=== PATIENT | female | born 1990 | race Caucasian/White ===

== ENCOUNTER → 2021-01-25 09:06 | Outpatient (CLI) | payer OTHER, SELFPAY ==
--- NOTE | ~2021-01-25 | US_ITS ---
EXAMINATION: US pelvic complete w TV EXAM DATE: 01/25/2021 09:37 INDICATION: Amenorrhea. TECHNIQUE: Pelvic transabdominal and transvaginal sonogram was performed. There are multiple graysca le and Doppler images available for interpretation. There is no prior study for comparison. FINDINGS: Uterus measures 8.8 x 4.8 x 5.7 cm, may have small fibroid measuring 1.2 cm. Endometrial stripe measures 3 mm, within normal limits. There is no free pelvic fluid. Right adnexa: The ovary measures 3.3 x 1.7 x 2.8 cm and is morphologically normal. Ovarian vascular f low confirmed. Left adnexa: The ovary measures 3.9 x 1.7 x 2.5 cm and is morphologically normal. Ovarian vascular fl ow confirmed. IMPRESSION: 1. Probable small fibroid. Reviewed, dictated and finalized at location G. IMPRESSION: 1. Probable small fibroid.
== END ==
PROVIDERS: PCP Family Medicine; Visit Provider Family Medicine
DX: N91.2 Amenorrhea, unspecified (principal)
CPT/HCPCS: 76830; 76856

== ENCOUNTER 2021-09-07 01:06 | Emergency (ER) | payer BC, SELFPAY ==
[2021-09-07] VITALS (8 sets, daily range): BP systolic 107–127; BP diastolic 72–79; PULSE 52; RESP 16–18; TEMP 36.8–37.1; O2SAT 97–100
--- NOTE | ~2021-09-07 | CT_ITS ---
EXAMINATION: CT abdomen pelvis w con DATE: 09/07/2021 02:57 INDICATION: Lower abdominal pain TECHNIQUE: Computed tomography (CT) of the abdomen and pelvis was performed with 75 mL Omnipaque-300 intravenous contrast. Automated exposure control and iterative reconstruction technique were employed . The dose-length product was 215.83 mGy-cm. COMPARISON: None FINDINGS: Lung bases are clear. Heart size is normal. No pericardial or pleural effusion. Liver, gallbladder, s pleen, pancreas and bilateral adrenal glands are normal. Multiple bilateral renal cysts, the largest on the left measuring 1.3 cm. Bowels including the appendix are normal. Heterogeneous enhancement of the anteverted uterus suggesting the presence of uterine fibroids. Bladder is normal. Minimal likely physiologic free fluid at the left adnexa. Bilateral ovaries are unremarkable. No pathologically enla rged abdominal or pelvic lymphadenopathy. Bones are unremarkable. IMPRESSION: 1. No acute intra-abdominal/pelvic process. Specifically the appendix is normal. 2. Fibroid uterus. Reviewed, dictated and finalized at location A. IMPRESSION: 1. No acute intra-abdominal/pelvic process. Specifically the appendix is normal . 2. Fibroid uterus.
[2021-09-07 01:42] LABS: Basophils Absolute Auto 0.1 K/mm3 (0.0-0.1); Basophils Percent Auto 0.5 % (0.2-1.2); Eosinophils Absolute Auto 0.1 K/mm3 (0-0.3); Hematocrit 42.3 % (37.0-47.0); Hemoglobin 13.7 g/dL (12.0-15.0); Immature Granulocyte Absolute 0.04 K/mm3 (0.00-0.031); Immature Granulocyte Percent A 0.3 % (0-0.5); Lymphocytes Absolute Auto 1.48 K/mm3 (0.9-3.2); Lymphocytes Percent Auto 12.9 % (18.3-44.2); Mean Corpuscular HGB Conc 32.4 g/dl (32-36); Mean Corpuscular Hemoglobin 28.4 pg (26-34); Mean Corpuscular Volume 87.8 fl (80-100); Monocytes Absolute Auto 0.4 K/mm3 (0.1-0.6); Monocytes Percent Auto 3.6 % (2.6-8.5); Neutrophils Absolute Auto 9.3 K/mm3 (1.3-6.7); Neutrophils Percent Auto 81.7 % (45.5-73.1); Platelet Count Result 315 k/mm3 (150-375); Red Blood Count 4.82 M/mm3 (4.2-5.4); Red Cell Distribution Width 13.5 % (11.5-14.5); White Blood Count 11.4 K/mm3 (4.5-10.0)
[2021-09-07 01:50] LABS: Alanine Aminotransferase 16 U/L (6-35); Albumin Level 4.6 g/dL (3.5-5.1); Alkaline Phosphatase 47 U/L (38-126); Anion Gap 11 mmol/L (8-16); Aspartate Amino Transferase 27 U/L (14-36); Bilirubin,Total 0.5 mg/dL (0.2-1.3); Blood Urea Nitrogen 18 mg/dL (7-17); Calcium 9.7 mg/dL (8.4-10.2); Carbon Dioxide 23 mmol/L (22-30); Chloride 104 mmol/L (98-107); Estimated CRCL calculation 70 ml/min; Estimated Glomerular Filt Rate > 60; Glucose 204 mg/dL (65-110); Lipase 64 U/L (23-300); Potassium 4.3 mmol/L (3.4-5.0); Sodium 138 mmol/L (137-145)
--- NOTE | 2021-09-07 01:59 | ED.GENADULT ---
HPI - General Adult General Chief complaint: Abdominal Pain Stated complaint: abd pain Time Seen by Provider: 09/07/21 01:34 History of Present Illness HPI narrative: Patient presents emergency department from home for abdominal pain. Patient states symptoms began approximately 6:30 PM tonight. Pain is located across the upper abdomen described as cramping in nature associated with nausea vomiting and diarrhea. Patient denies any fevers or chills, chest pain shortness of breath or any other symptoms. States she took ibuprofen at home for the pain with minimal relief Related Data Allergies Allergy/AdvReac Type Severity Reaction Status Date / Time No Known Allergies Allergy Unverified 09/07/21 01:09 Review of Systems Review of Systems: Gen.: Denies fevers or chills ENT: Denies congestion Respiratory: Denies shortness of breath or cough CV: Denies chest pain or palpitations GI: See HPI denies burning, urgency, frequency or hematuria Musculoskeletal: Denies back pain or muscle pain Neuro: Denies numbness, tingling, weakness or focal weakness Skin: Denies rash Except as documented, all other systems reviewed and negative [facility] Past Medical History Medical History (Updated 09/07/21 @ 03:53 by Perry Evans DO) Patient denies significant medical history Social History Social History (Updated 09/07/21 @ 02:00 by Perry Evans DO) Smoking status: Never smoker Exam Narrative: APPEARANCE: No acute distress, nontoxic, resting in bed HEENT: Normocephalic, atraumatic, OMM RESPIRATORY: No respiratory distress, clear to auscultation bilaterally with no rhonchi wheezing or rales CARDIOVASCULAR: RRR s murmur ABDOMINAL: Soft nondistended tender palpation epigastric and right upper quadrant left upper quadrant no tenderness right lower quadrant left lower quadrant no rebound or guarding MUSCULOSKELETAl: Moves all extremities. No clubbing, cyanosis or edema. NEURO: Awake and alert. Following commands, speech normal, no focal deficits SKIN:: Warm, dry. Normal Color PSYCHIATRIC: Normal affect/mood Course Course Emergency Course: Patient states that they are feeling much better at this time. States abdominal pain has resolved. Repeat abdominal exam shows the patient's abdomen to be soft and nontender. Discussed with patient results of workup and diagnosis. Discussed need for follow-up with primary care physician, reasons to return to the emergency department in proper use of medication. Patient understands and agrees to current treatment plan Vital Signs Vital signs: Vital Signs Temperature 98.2 F 09/07/21 01:07 Pulse Rate 52 L 09/07/21 01:07 Respiratory Rate 16 09/07/21 01:07 Blood Pressure 127/75 09/07/21 01:07 Pulse Oximetry 100 09/07/21 01:07 Temperature 98.2 F 09/07/21 01:07 Pulse Rate 52 L 09/07/21 01:07 Respiratory Rate 16 09/07/21 01:07 Blood Pressure 112/79 09/07/21 03:01 Pulse Oximetry 98 09/07/21 03:01 Medical Decision Making MDM Narrative Medical decision making narrative: Patient's abdomen is soft without significant pain or signs of surgical abdomen on serial exams. Lab and x-ray evaluations are reviewed and patient is felt to be a reasonable candidate for outpatient management. Patient was instructed as to limitations of x-ray and laboratory evaluation and encouraged to return to ED or primary physician for repeat exam in 12 hours if continued or worsening pain Vital Signs Vital Signs: Vital Signs Temperature 98.2 F 09/07/21 01:07 Pulse Rate 52 L 09/07/21 01:07 Respiratory Rate 16 09/07/21 01:07 Blood Pressure 127/75 09/07/21 01:07 Pulse Oximetry 100 09/07/21 01:07 Temperature 98.2 F 09/07/21 01:07 Pulse Rate 52 L 09/07/21 01:07 Respiratory Rate 16 09/07/21 01:07 Blood Pressure 112/79 09/07/21 03:01 Pulse Oximetry 98 09/07/21 03:01 Lab Data Result diagrams: 09/07/21 01:35 09/07/21 01:35 Labs: La
[2021-09-07] MEDS: SODIUM CHLORIDE 0.9% IV 1,000 ML 999 ML IV CONT (02:12)
[2021-09-07] MEDS: MORPHINE SULFATE (*CRX) 4 MG/ML INJ IV PUSH (02:13)
[2021-09-07] MEDS: ONDANSETRON INJ 4 MG/2 ML VIAL IV PUSH (02:13)
[2021-09-07 02:25] LABS: Appearance Urine Clear (Clear); Bilirubin Urine Negative (Negative); Blood Urine 1+ (Negative); Color Urine Yellow (Yellow); Glucose Urine UA 1+ mg/dL (Negative); Ketones Urine Trace mg/dL (Negative); Leukocyte Esterase Ur Negative LEU/UL (Negative); Nitrate Urine Negative (Negative); Protein Urine Negative (Negative); Specific Grav Ur 1.025 (1.001-1.035); Urobilinogen Urine 0.2 mg/dL (<2.0)
[2021-09-07 02:35] LABS: Mucus Urine Rare /lpf; Squamous Epithelial Cell Urine Few /hpf (Few); WBC Urine 0-3 /hpf
[2021-09-07 02:51] LABS: Add Urine Microscopic? YES
== END 2021-09-07 04:28 | disposition home or self-care (01) ==
PROVIDERS: Emergency Provider Emergency Medicine; PCP Family Medicine
DX: R10.10 Upper abdominal pain, unspecified (principal); R11.2 Nausea with vomiting, unspecified
CPT/HCPCS: 36415; 74177; 80053; 81001; 81025; 83690; 85025; 96361; 96374; 96375; 99284; J2270; J2405; J7030; Q9967

== ENCOUNTER 2024-07-07 07:45 | Day surgery (SDC) | payer BC, SELFPAY ==
[2024-07-07] VITALS (14 sets, daily range): BP systolic 100–140; BP diastolic 71–92; PULSE 72–121; RESP 15–20; TEMP 36.6–36.9; O2SAT 99–100; BMI 23.8
--- NOTE | ~2024-07-07 | US_ITS ---
EXAMINATION: US OB <=14 wk fetus w TV DATE: 07/07/2024 10:35 INDICATION: Right lower quadrant abdominal pain. TECHNIQUE: Real-time pelvic ultrasound utilizing both a transvaginal and transabdominal probe was pe rformed. The interpreting radiologist was not present for the study. COMPARISON: None. FINDINGS: The uterus measures 9.2 x 5.5 x 6.4 cm. The endometrial complex measures up to 1.1 cm in thickness wi th no evident intrauterine gestational sac. Heterogeneous echogenicity to the myometrium with linear bands of posterior shadowing which could be seen in setting of diffuse adenomyosis. [address] at the cervix. The left ovary measures 2.7 x 1.4 x 1.4 with 8mm anechoic left ovarian cyst. The right ovary measure s 2.6 x 1.8 x 2.6 cm. Mass or flow identified in both ovaries on color Doppler. There is a thick-wall ed tubular structure extending between the uterus and the right ovary likely representing a fallopian tube. Near the ovarian side is approximately 1.5 cm hypoechoic lesion with central 6 mm near anechoi c region with peripheral hypervascularity on color Doppler potentially representing a ring of fire si gn associated with a potential tubal ectopic . There is small amount of hypoechoic free flui d in the pelvis predominantly along the uterine fundus and at the right adnexa potentially representi ng small amount of hemoperitoneum. IMPRESSION: 1. No evident intrauterine gestational sac for which differential would include early , fail ed or ectopic . There is a lesion which appears separate from the right ovary with peripheral hyperemia along what appears to be a thickened right fallopian tube which is concerning f or a tubal ectopic . 2. Small amount of hypoechoic free fluid in the pelvis suspicious for hemoperitoneum. 3. Heterogeneous appearance to the uterine myometrium suspicious for diffuse adenomyosis. Reviewed, dictated and finalized at location A. IMPRESSION: 1. No evident intrauterine gestational sac for which differential would include early , failed or ectopic . There is a lesion whic h appears separate from the right ovary with peripheral hyperemia along what ap pears to be a thickened right fallopian tube which is concerning for a tubal ec topic . 2. Small amount of hypoechoic free fluid in the pelvis suspicious for hemoperit oneum. 3. Heterogeneous appearance to the uterine myometrium suspicious for diffuse ad enomyosis.
[2024-07-07 08:35] LABS: Basophils Absolute Auto 0.1 K/mm3 (0.0-0.1); Basophils Percent Auto 0.9 % (0.2-1.2); Eosinophils Absolute Auto 0.2 K/mm3 (0-0.3); Hematocrit 37.7 % (37.0-47.0); Hemoglobin 12.3 g/dL (12.0-15.0); Immature Granulocyte Absolute 0.02 K/mm3 (0.00-0.031); Immature Granulocyte Percent A 0.3 % (0-0.5); Lymphocytes Absolute Auto 1.19 K/mm3 (0.9-3.2); Lymphocytes Percent Auto 18.6 % (18.3-44.2); Mean Corpuscular HGB Conc 32.6 g/dl (32-36); Mean Corpuscular Hemoglobin 28.3 pg (26-34); Mean Corpuscular Volume 86.9 fl (80-100); Mean Platelet Volume 9.7 fl (7.4-10.4); Monocytes Absolute Auto 0.4 K/mm3 (0.1-0.6); Monocytes Percent Auto 6.4 % (2.6-8.5); Neutrophils Absolute Auto 4.5 K/mm3 (1.3-6.7); Neutrophils Percent Auto 70.8 % (45.5-73.1); Platelet Count Result 310 k/mm3 (150-375); Red Blood Count 4.34 M/mm3 (4.2-5.4); Red Cell Distribution Width 13.1 % (11.5-14.5); White Blood Count 6.4 K/mm3 (4.5-10.0)
[2024-07-07 08:48] LABS: Alanine Aminotransferase 17 U/L (6-35); Albumin Level 4.4 g/dL (3.5-5.1); Alkaline Phosphatase 57 U/L (38-126); Anion Gap 11 mmol/L (4-12); Aspartate Amino Transferase 24 U/L (14-36); Bilirubin,Total 0.5 mg/dL (0.2-1.3); Blood Urea Nitrogen 14 mg/dL (7-17); Carbon Dioxide 22 mmol/L (22-30); Chloride 103 mmol/L (98-107); Estimated CRCL calculation 80 ml/min; Estimated Glomerular Filt Rate > 60; Glucose 155 mg/dL (65-110); Partial Thromboplastin Time 23.1 Seconds (22.3-36.8); Sodium 136 mmol/L (137-145)
--- NOTE | 2024-07-07 09:03 | ED.FEMALEGU ---
HPI - Female Genitourinary General Chief complaint: Vaginal Bleeding <BETTY Lyn Last Filed: 07/07/24 15:41> Stated complaint: day 22 of my period, <BETTY Lyn Last Filed: 07/07/24 15:41> Time Seen by Provider: 07/07/24 09:01 <BETTY Lyn Last Filed: 07/07/24 15:41> Source: patient <BETTY Lyn Last Filed: 07/07/24 15:41> Mode of arrival: ambulatory <BETTY Lyn Last Filed: 07/07/24 15:41> Limitations: no limitations <BETTY Lyn Last Filed: 07/07/24 15:41> History of Present Illness HPI Narrative: Patient is a 33 y/o female, with PMH of PCOS, who presents to the ED with c/o vaginal bleeding. Reports she typically has regular 28 day cycles with 5-7 days of bleeding. She has been consistently bleeding over the last 22 days. States bleeding has been fairly mild. Not requiring super plus tampons. She has had intermittent dull aching pain in her right lower abdomen over the last few weeks, but pain became worse and more constant since last night. Has not taken anything for pain. Denies significant nausea, vomiting. Does have some pressure with urination. Scheduled to see a new OBGYN on 07/27. Not currently on any control. States she has not had any issues with her PCOS in the past. Denies dysuria, but has some pressure with urination. <BETTY Lyn Last Filed: 07/07/24 15:41> Related Data Allergies/Adverse reactions: Allergies Allergy/AdvReac Type Severity Reaction Status Date / Time No Known Allergies Allergy Verified 07/07/24 12:55 <BETTY Lyn Last Filed: 07/07/24 15:41> Review of Systems Review of Systems: All systems reviewed & are unremarkable except as noted in HPI. <BETTY Lyn Last Filed: 07/07/24 15:41> All systems reviewed & are unremarkable except as noted in HPI and below <Liliana Prater PA-C - Last Filed: 07/07/24 15:41> PMFSH Past Medical History Medical History: Medical History PCOS (polycystic ovarian syndrome) Patient denies significant medical history <Liliana Prater PA-C - Last Filed: 07/07/24 15:41> Surgical History Surgical History: Surgical History H/O wisdom tooth extraction H/O myringotomy <Liliana Prater PA-C - Last Filed: 07/07/24 15:41> Social History Social History: Social History Smoking status: Never smoker <Liliana Prater PA-C - Last Filed: 07/07/24 15:41> Exam Narrative: GENERAL: Well appearing, well-nourished, non-toxic, in no acute distress. HEAD: Normocephalic, atraumatic. RESPIRATORY: Airway patent, respirations nonlabored. Clear to auscultation bilaterally, no rales, rhonchi, wheezing. CARDIOVASCULAR: Regular rate and rhythm without murmurs, rubs, or gallops. ABDOMINAL: Soft, mild tenderness in right lower quadrant, nondistended. Normoactive BS. MUSCULOSKELETAL: Moves all extremities. No gross deformities. SKIN: Warm, dry, normal color. NEURO: A&O X3. Speech clear. PSYCHIATRIC: Appropriate mood and affect. Normal interaction. 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 Found to have ectopic with hemoperitoneum. I was available for consultation while patient was department but did personally evaluate this patient was not directly involved in their care otherwise. I am aware that Ob [facility] will be evaluating this patient and likely going to the operating room. <Jaky Grey MD - Last Filed: 07/07/24 21:55> Vital Signs Vital signs: Vital Signs Temperature 97.8 F 07/07/24 07:49 Pulse Rate 80 07/07/24 07:49 Respiratory Rate 16 07/07/24 07:49 Blood Pressure 136/86 07/07/24 07:49 Pulse Oximetry 100 07/07/24 07:49 Oxygen Delivery Room Air 07/07/24 07:49 Temperature 98.1 F 07/07/24 13:31 Pulse Rate 80 07/07/24 15:00 Respiratory Rate 20 07/07/24 15:00 Blood Pressure 128/78 07/07/24 15:00 Pulse Oximetry 100 07/07/24 14:00 Oxygen Delivery Room Air 07/07/24 15:00 Oxygen Flow Rate 8 07/07/24 13:40 <Liliana Prater PA-C - Last Filed: 07/07/24 15:41> Vital Signs Temperature 97.8 F 07/07/24 07:49 Pulse Rate 80 07/07/24 07:49 Respiratory Rate 16 07/07/24 07:49 Blood Pressure 136/86 07/07/24 07:49 Pulse Oximetry 100 07/07/24 07:49 Oxygen Delivery Room Air 07/07/24 07:49 Temperature 98.1 F 07/07/24 13:31 Pulse Rate 80 07/07/24 15:00 Respiratory Rate 20 07/07/24 15:00 Blood Pressure 128/78 07/07/24 15:00 Pulse Oximetry 100 07/07/24 14:00 Oxygen Delivery Room Air 07/07/24 15:00 Oxygen Flow Rate 8 07/07/24 13:40 <Jaky Grey MD - Last Filed: 07/07/24 21:55> MDM - Female Genitourinary MDM Narrative Medical decision making narrative: Patient presented to ED with 22 days of vaginal bleeding. Now having pain in the right lower quadrant since last night. History of PCOS. Vital signs are stable upon arrival. Patient is in no acute distress. Laboratory studies are unremarkable. UA without signs of infection. Bedside urine test was positive. This is unexpected to patient. Beta hCG and Rh added on. Blood type is A negative. RhoGAM ordered. Beta hCG is 698. Pelvic ultrasound showing findings concerning for right-sided tubal ectopic , small amount of hemoperitoneum. Discussed case with john Hodges sponge hooker, advised will be coming to the ED to speak to patient, likely take to the OR. Patient updated on plan. She is in agreement. She last ate last night. Had a few sips of water this morning. Patient to OR from the ED. <Liliana Prater PA-C - Last Filed: 07/07/24 15:41> Medical Records Attestation: I reviewed the patient's medical records. <Liliana Prater PA-C - Last Filed: 07/07/24 15:41> Lab Data Attestation: I reviewed the patient's lab results. <Liliana Prater PA-C - Last Filed: 07/07/24 15:41> Result diagrams: 07/07/24 08:25 07/07/24 08:25 <Liliana Prater PA-C - Last Filed: 07/07/24 15:41> Labs: Lab Results 07/07/24 07/07/24 07/07/24 Range/Units 08:25 09:33 09:38 WBC 6.4 (4.5-10.0) K/mm3 RBC 4.34 (4.2-5.4) M/mm3 Hgb 12.3 (12.0-15.0) g/dL Hct 37.7 (37.0-47.0) % MCV 86.9 (80-100) fl MCH 28.3 (26-34) pg MCHC 32.6 (32-36) g/dl RDW 13.1 (11.5-14.5) % Plt Count 310 (150-375) k/mm3 MPV 9.7 (7.4-10.4) fl Immature Gran % (Auto) 0.3 (0-0.5) % Neut % (Auto) 70.8 (45.5-73.1) % Lymph % (Auto) 18.6 (18.3-44.2) % [place] % (Auto) 6.4 (2.6-8.5) % Eos % (Auto) 3.0 (0-4.4) % Baso % (Auto) 0.9 (0.2-1.2) % Lymph # (Auto) 1.19 (0.9-3.2) K/mm3 [place] # (Auto) 0.4 (0.1-0.6) K/mm3 Eos # (Auto) 0.2 (0-0.3) K/mm3 Baso # (Auto) 0.1 (0.0-0.1) K/mm3 Abs Immat Gran (auto) 0.02 (0.00-0.031) K/mm3 Absolute Neuts (auto) 4.5 (1.3-6.7) K/mm3 Absolute Nucleated RBC 0.000 (0.0-0.012) K/mm3 Nucleated RBC % 0.0 (0.0-0.2) % PT 14.0 (11.1-14.7) Seconds INR 1.0 APTT 23.1 (22.3-36.8) Seconds Sodium 136 L (137-145) mmol/L Potassium 4.0 (3.4-5.0) mmol/L Chloride 103 (98-107) mmol/L Carbon Dioxide 22 (22-30) mmol/L Anion Gap 11 (4-12) mmol/L BUN 14 (7-17) mg/dL Creatinine 0.73 (0.7-1.0) mg/dL Estim Creat Clear Calc 80 ml/min Estimated GFR > 60 (59 - ) Glucose 155 H (65-110) mg/dL Calcium 9.0 (8.4-10.2) mg/dL Total Bilirubin 0.5 (0.2-1.3) mg/dL AST 24 (14-36) U/L ALT 17 (6-35) U/L Alkaline Phosphatase 57 (38-126) U/L Total Protein 7.0 (6.3-8.2) g/dL Albumin 4.4 (3.5-5.1) g/dL Beta HCG, Quant mIU/ML Urine Color Yellow (Yellow) Urine Appearance Clear (Clear) Urine pH 6.5 (5.0-9.0) Ur Specific [place] 1.022 (1.001-1.035) Urine Protein Negative (Negative) mg/dL Urine Glucose (UA) Negative (Negative) mg/dL Urine Ketones 2+ H (Negative) mg/dL Ur Blood (Man) 1+ H (Negative) Urine Nitrate Negative (Negative) Urine Bilirubin Negative (Negative) Urine Urobilinogen 0.2 (<2.0) mg/dL Leukocyte Esterase Rfl Negative (Negative) HELENA/UL Urine RBC 0-2 (0-2) /hpf Urine WBC 0-5 (0-3) /hpf Ur Squamous Epith Cells Occasional (Few) /hpf Urine Bacteria None seen /hpf Urine Casts 0-2 POC Urine HCG, Qual Positive (Negative) Blood Type Antibody Screen Screen Baby's Blood Type Baby's ESTHELA Doses of RhIg Required 07/07/24 Range/Units 10:42 WBC (4.5-10.0) K/mm3 RBC (4.2-5.4) M/mm3 Hgb (12.0-15.0) g/dL Hct (37.0-47.0) % MCV (80-100) fl MCH (26-34) pg MCHC (32-36) g/dl RDW (11.5-14.5) % Plt Count (150-375) k/mm3 MPV (7.4-10.4) fl Immature Gran % (Auto) (0-0.5) % Neut % (Auto) (45.5-73.1) % Lymph % (Auto) (18.3-44.2) % [place] % (Auto) (2.6-8.5) % Eos % (Auto) (0-4.4) % Baso % (Auto) (0.2-1.2) % Lymph # (Auto) (0.9-3.2) K/mm3 [place] # (Auto) (0.1-0.6) K/mm3 Eos # (Auto) (0-0.3) K/mm3 Baso # (Auto) (0.0-0.1) K/mm3 Abs Immat Gran (auto) (0.00-0.031) K/mm3 Absolute Neuts (auto) (1.3-6.7) K/mm3 Absolute Nucleated RBC (0.0-0.012) K/mm3 Nucleated RBC % (0.0-0.2) % PT (11.1-14.7) Seconds INR APTT (22.3-36.8) Seconds Sodium (137-145) mmol/L Potassium (3.4-5.0) mmol/L Chloride (98-107) mmol/L Carbon Dioxide (22-30) mmol/L Anion Gap (4-12) mmol/L BUN (7-17) mg/dL Creatinine (0.7-1.0) mg/dL Estim Creat Clear Calc ml/min Estimated GFR (59 - ) Glucose (65-110) mg/dL Calcium (8.4-10.2) mg/dL Total Bilirubin (0.2-1.3) mg/dL AST (14-36) U/L ALT (6-35) U/L Alkaline Phosphatase (38-126) U/L Total Protein (6.3-8.2) g/dL Albumin (3.5-5.1) g/dL Beta HCG, Quant 698.53 mIU/ML Urine Color (Yellow) Urine Appearance (Clear) Urine pH (5.0-9.0) Ur Specific [place] (1.001-1.035) Urine Protein (Negative) mg/dL Urine Glucose (UA) (Negative) mg/dL Urine Ketones (Negative) mg/dL Ur Blood (Man) (Negative) Urine Nitrate (Negative) Urine Bilirubin (Negative) Urine Urobilinogen (<2.0) mg/dL Leukocyte Esterase Rfl (Negative) HELENA/UL Urine RBC (0-2) /hpf Urine WBC (0-3) /hpf Ur Squamous Epith Cells (Few) /hpf Urine Bacteria /hpf Urine Casts POC Urine HCG, Qual (Negative) Blood Type A Negative Antibody Screen Negative Screen Not Reportable Baby's Blood Type Not Reportable Baby's ESTHELA Not Reportable Doses of RhIg Required 1 <Liliana Prater PA-C - Last Filed: 07/07/24 15:41> Lab Results 07/07/24 07/07/24 07/07/24 Range/Units 08:25 09:33 09:38 WBC 6.4 (4.5-10.0) K/mm3 RBC 4.34 (4.2-5.4) M/mm3 Hgb 12.3 (12.0-15.0) g/dL Hct 37.7 (37.0-47.0) % MCV 86.9 (80-100) fl MCH 28.3 (26-34) pg MCHC 32.6 (32-36) g/dl RDW 13.1 (11.5-14.5) % Plt Count 310 (150-375) k/mm3 MPV 9.7 (7.4-10.4) fl Immature Gran % (Auto) 0.3 (0-0.5) % Neut % (Auto) 70.8 (45.5-73.1) % Lymph % (Auto) 18.6 (18.3-44.2) % [place] % (Auto) 6.4 (2.6-8.5) % Eos % (Auto) 3.0 (0-4.4) % Baso % (Auto) 0.9 (0.2-1.2) % Lymph # (Auto) 1.19 (0.9-3.2) K/mm3 [place] # (Auto) 0.4 (0.1-0.6) K/mm3 Eos # (Auto) 0.2 (0-0.3) K/mm3 Baso # (Auto) 0.1 (0.0-0.1) K/mm3 Abs Immat Gran (auto) 0.02 (0.00-0.031) K/mm3 Absolute Neuts (auto) 4.5 (1.3-6.7) K/mm3 Absolute Nucleated RBC 0.000 (0.0-0.012) K/mm3 Nucleated RBC % 0.0 (0.0-0.2) % PT 14.0 (11.1-14.7) Seconds INR 1.0 APTT 23.1 (22.3-36.8) Seconds Sodium 136 L (137-145) mmol/L Potassium 4.0 (3.4-5.0) mmol/L Chloride 103 (98-107) mmol/L Carbon Dioxide 22 (22-30) mmol/L Anion Gap 11 (4-12) mmol/L BUN 14 (7-17) mg/dL Creatinine 0.73 (0.7-1.0) mg/dL Estim Creat Clear Calc 80 ml/min Estimated GFR > 60 (59 - ) Glucose 155 H (65-110) mg/dL Calcium 9.0 (8.4-10.2) mg/dL Total Bilirubin 0.5 (0.2-1.3) mg/dL AST 24 (14-36) U/L ALT 17 (6-35) U/L Alkaline Phosphatase 57 (38-126) U/L Total Protein 7.0 (6.3-8.2) g/dL Albumin 4.4 (3.5-5.1) g/dL Beta HCG, Quant mIU/ML Urine Color Yellow (Yellow) Urine Appearance Clear (Clear) Urine pH 6.5 (5.0-9.0) Ur Specific [place] 1.022 (1.001-1.035) Urine Protein Negative (Negative) mg/dL Urine Glucose (UA) Negative (Negative) mg/dL Urine Ketones 2+ H (Negative) mg/dL Ur Blood (Man) 1+ H (Negative) Urine Nitrate Negative (Negative) Urine Bilirubin Negative (Negative) Urine Urobilinogen 0.2 (<2.0) mg/dL Leukocyte Esterase Rfl Negative (Negative) HELENA/UL Urine RBC 0-2 (0-2) /hpf Urine WBC 0-5 (0-3) /hpf Ur Squamous Epith Cells Occasional (Few) /hpf Urine Bacteria None seen /hpf Urine Casts 0-2 POC Urine HCG, Qual Positive (Negative) Blood Type Antibody Screen Screen Baby's Blood Type Baby's ESTHELA Doses of RhIg Required 07/07/24 Range/Units 10:42 WBC (4.5-10.0) K/mm3 RBC (4.2-5.4) M/mm3 Hgb (12.0-15.0) g/dL Hct (37.0-47.0) % MCV (80-100) fl MCH (26-34) pg MCHC (32-36) g/dl RDW (11.5-14.5) % Plt Count (150-375) k/mm3 MPV (7.4-10.4) fl Immature Gran % (Auto) (0-0.5) % Neut % (Auto) (45.5-73.1) % Lymph % (Auto) (18.3-44.2) % [place] % (Auto) (2.6-8.5) % Eos % (Auto) (0-4.4) % Baso % (Auto) (0.2-1.2) % Lymph # (Auto) (0.9-3.2) K/mm3 [place] # (Auto) (0.1-0.6) K/mm3 Eos # (Auto) (0-0.3) K/mm3 Baso # (Auto) (0.0-0.1) K/mm3 Abs Immat Gran (auto) (0.00-0.031) K/mm3 Absolute Neuts (auto) (1.3-6.7) K/mm3 Absolute Nucleated RBC (0.0-0.012) K/mm3 Nucleated RBC % (0.0-0.2) % PT (11.1-14.7) Seconds INR APTT (22.3-36.8) Seconds Sodium (137-145) mmol/L Potassium (3.4-5.0) mmol/L Chloride (98-107) mmol/L Carbon Dioxide (22-30) mmol/L Anion Gap (4-12) mmol/L BUN (7-17) mg/dL Creatinine (0.7-1.0) mg/dL Estim Creat Clear Calc ml/min Estimated GFR (59 - ) Glucose (65-110) mg/dL Calcium (8.4-10.2) mg/dL Total Bilirubin (0.2-1.3) mg/dL AST (14-36) U/L ALT (6-35) U/L Alkaline Phosphatase (38-126) U/L Total Protein (6.3-8.2) g/dL Albumin (3.5-5.1) g/dL Beta HCG, Quant 698.53 mIU/ML Urine Color (Yellow) Urine Appearance (Clear) Urine pH (5.0-9.0) Ur Specific [place] (1.001-1.035) Urine Protein (Negative) mg/dL Urine Glucose (UA) (Negative) mg/dL Urine Ketones (Negative) mg/dL Ur Blood (Man) (Negative) Urine Nitrate (Negative) Urine Bilirubin (Negative) Urine Urobilinogen (<2.0) mg/dL Leukocyte Esterase Rfl (Negative) HELENA/UL Urine RBC (0-2) /hpf Urine WBC (0-3) /hpf Ur Squamous Epith Cells (Few) /hpf Urine Bacteria /hpf Urine Casts POC Urine HCG, Qual (Negative) Blood Type A Negative Antibody Screen Negative Screen Not Reportable Baby's Blood Type Not Reportable Baby's ESTHELA Not Reportable Doses of RhIg Required 1 <Jaky Grey MD - Last Filed: 07/07/24 21:55> Imaging Data Attestation: I personally reviewed and interpreted this imaging study as follows: <Liliana Prater PA-C - Last Filed: 07/07/24 15:41> Radiologist's impression: ITS Impressions Obstetrics Ultrasound 07/07/24 10:36 IMPRESSION: 1. No evident intrauterine gestational sac for which differential would include early , failed or ectopic . There is a lesion which appears separate from the right ovary with peripheral hyperemia along what appears to be a thickened right fallopian tube which is concerning for a tubal ectopic . 2. Small amount of hypoechoic free fluid in the pelvis suspicious for hemoperitoneum. 3. Heterogeneous appearance to the uterine myometrium suspicious for diffuse adenomyosis. ADDENDUM: 07/07/24 1220 ADDENDUM: These findings were discussed with immediately prior to finalizing the report at 9:55 AM. <Liliana Prater PA-C - Last Filed: 07/07/24 15:41> Discharge Plan Discharge Clinical Impression: Hemoperitoneum Tubal ectopic Qualifiers: Intrauterine status: without intrauterine Laterality: right Qualified Code(s): O00.101 - Right tubal without intrauterine <Liliana Parter PA-C - Last Filed: 07/07/24 15:41> Patient Disposition: Still a Patient <Liliana Prater PA-C - Last Filed: 07/07/24 15:41> Condition: Stable <BETTY Lyn Last Filed: 07/07/24 15:41>
--- NOTE | 2024-07-07 09:37 | PC.NURSE ---
Pt to u/s via w/c at this time.
[2024-07-07 09:39] LABS: BEDSIDEPREGUCG Positive (Negative)
[2024-07-07 09:54] LABS: Add Urine Microscopic? YES; Appearance Urine Clear (Clear); Bacteria Urine None Seen /hpf; Bilirubin Urine Negative (Negative); Blood Urine 1+ (Negative); Color Urine Yellow (Yellow); Glucose Urine UA Negative (Negative); Ketones Urine 2+ mg/dL (Negative); Leukocyte Esterase Ur Negative LEU/UL (Negative); Nitrate Urine Negative (Negative); Non Pathogenic Casts 0-2; Protein Urine Negative (Negative); RBC Urine 0-2 /hpf (0-2); Specific Grav Ur 1.022 (1.001-1.035); Squamous Epithelial Cell Urine Occasional /hpf (Few); Urobilinogen Urine 0.2 mg/dL (<2.0); WBC Urine 0-5 /hpf (0-3); pH Urine 6.5 (5.0-9.0)
[2024-07-07] MEDS: ONDANSETRON INJ 4 MG/2 ML VIAL IV PUSH (10:27)
[2024-07-07] MEDS: MORPHINE SULFATE (*CRX) 2 MG/ML INJ IV PUSH (10:27)
[2024-07-07 11:19] LABS: Beta HCG Quantitative 698.53 mIU/ML
[2024-07-07] MEDS: RHO(D) IMMUNE GLOBULIN 300 MCG/2 ML SYRINGE IM (12:20)
--- NOTE | 2024-07-07 12:20 | PM.IMHP ---
H&P: HPI History of Present Illness Date/Time: 07/07/24 12:20 Chief Complaint: vaginal bleeding tubal ectopic Narrative: 33-year-old who presents with complaint of vaginal bleeding. Patient was incidentally found to be in the emergency room. Patient reports a history of PCOS. She is not on any hormonal contraceptives. Patient had been having regular monthly menses. She states her LMP was 06/18/2019. Patient states she has had continued bleeding since. Patient attributed her bleeding to an abnormal menses. Patient states that last evening she started developing a right lower quadrant pain. Patient states this morning while getting ready for work the pain intensified. Patient had sudden onset of nausea. Patient states this is in on planned an undesired . Patient does not want any children. Patient is stable in the bed during my evaluation. Patient's pain is controlled. Review of Systems Cardiovascular: Cardiovascular: Denies chest pain, Denies leg edema, Denies palpitations, Denies dyspnea and Denies dyspnea on exertion Respiratory: Respiratory: Denies cough, Denies dyspnea and Denies dyspnea on exertion Gastrointestinal: Gastrointestinal: Denies abdominal pain, Denies constipation, Denies diarrhea, Denies nausea and Denies vomiting Genitourinary: Genitourinary: Denies hematuria, Denies urinary frequency, Denies dysuria, Denies pelvic pain, Denies urinary incontinence and Denies vaginal discharge Neurologic: Reports system reviewed and no additional complaints, except as documented Psychiatric: Psychiatric: Reports no additional psychiatric complaints Endocrine: Endocrine: Denies palpitations PMFSH Past Medical History Medical History (Updated 07/07/24 @ 11:49 by Liliana Prater PA-C) PCOS (polycystic ovarian syndrome) Patient denies significant medical history Social History Social History Smoking status: Never smoker Meds Home Medications and Allergies Home Medications ?Medication ?Instructions ?Recorded ?Confirmed ?Type dicyclomine 20 mg tablet 20 mg PO TID PRN Abdominal 09/07/21 Rx cramping #10 tabs famotidine 20 mg tablet (Pepcid) 20 mg PO DAILY #14 tabs 09/07/21 Rx ondansetron 4 mg disintegrating 4 mg PO Q6H PRN nausea and 09/07/21 Rx tablet vomiting #10 tabs polyethylene glycol 3350 17 17 g PO DAILY #119 grams 09/07/21 Rx gram/dose oral powder (Miralax) Allergies Allergy/AdvReac Type Severity Reaction Status Date / Time No Known Allergies Allergy Unverified 09/07/21 01:09 Vital Signs Vital Signs - 24 hr 07/07/24 07:49 07/07/24 08:27 07/07/24 08:41 Temperature 97.8 F Pulse Rate 80 72 78 Respiratory Rate 16 15 Blood Pressure 136/86 127/87 124/88 Pulse Oximetry 100 100 Oxygen Delivery Room Air 07/07/24 08:43 07/07/24 08:44 07/07/24 10:31 Temperature Pulse Rate 105 H 114 H 77 Respiratory Rate 17 Blood Pressure 126/89 115/80 122/83 Pulse Oximetry 99 Oxygen Delivery Exam Const: General: no acute distress Eyes: EOM: EOMs intact bilaterally Neck: Neck: supple Thyroid: thyroid normal Chest: Breast/axilla inspection: normal inspection of the breasts Breast/axilla palpation: normal palpation of the breasts, normal palpation of the axillae and no axillary lymphadenopathy Resp: Effort & Inspection: normal respiratory effort Auscultation: clear to auscultation bilaterally Cardio: Rate: regular rate Rhythm: regular rhythm GI: Inspection: non-distended GI Palp: Yes Soft to palpation, Yes Tenderness to palpation present (GI) and No Guarding due to palpation present (GI) Auscultation: normal bowel sounds : General: No bladder normal to palpation External Female Exam: normal external appearance Speculum Exam - Vagina: normal vaginal discharge and No vaginal bleeding Speculum Exam - Cervix: nontender Bimanual exam- vagina & uterus: No bladder normal to palpation and No Cervical tenderness present OB/external & speculum: No vaginal bleeding Skin: General skin exam: normal color and no rashes or lesions noted Neuro: Cognition (Neuro): normal cognition Speech: normal speech Extrem: General: normal to inspection and no edema Psych: Mental Status: mental status grossly normal Affect: normal affect H&P: Results Labs Labs: Short CBC 07/07/24 Range/Units 08:25 WBC 6.4 (4.5-10.0) K/mm3 Hgb 12.3 (12.0-15.0) g/dL Hct 37.7 (37.0-47.0) % Plt Count 310 (150-375) k/mm3 BMP 07/07/24 08:25 Sodium 136 L Potassium 4.0 Chloride 103 Carbon Dioxide 22 BUN 14 Creatinine 0.73 Glucose 155 H Calcium 9.0 Liver Function 07/07/24 Range/Units 08:25 Total Bilirubin 0.5 (0.2-1.3) mg/dL AST 24 (14-36) U/L ALT 17 (6-35) U/L Alkaline Phosphatase 57 (38-126) U/L Albumin 4.4 (3.5-5.1) g/dL Urine 07/07/24 Range/Units 09:38 Urine Color Yellow (Yellow) Urine Appearance Clear (Clear) Urine pH 6.5 (5.0-9.0) Ur Specific [place] 1.022 (1.001-1.035) Urine Protein Negative (Negative) mg/dL Urine Glucose (UA) Negative (Negative) mg/dL Assessment and Plan Assessment and plan (1) Tubal ectopic : Code(s): O00.109 - Unspecified tubal without intrauterine Status: Acute Assessment and Plan: 33-year-old who presents right-sided tubal ectopic Patient reports history of PCOS, not on hormonal contraceptives Patient reports abnormal bleeding with daily vaginal bleeding for the past 20 days Patient reports acute onset right lower quadrant pain last evening, pain intensified this morning with acute onset nausea Patient incidentally found to be in the ER today Beta HCG 698 Pelvic ultrasound concerning for right tubal ectopic with possible hemoperitoneum Patient is hemodynamically stable in the emergency room Discussed ectopic and management options Discussed methotrexate versus surgical management via salpingectomy Given ultrasound findings for possible hemoperitoneum and patient's prolonged bleeding pattern, I do not feel she is an appropriate candidate for methotrexate Surgical management of ectopic discussed with patient Discussed laparoscopic right salpingectomy Risks, benefits, alternatives reviewed Patient consented to proceed with laparoscopic right salpingectomy for management of tubal ectopic
--- NOTE | 2024-07-07 12:29 | WPDHPUPDATE1 ---
History and Physical Update Update Date/Time: 07/07/24 12:29 -Rh negative- will administer rhogam History and Physical has been reviewed, including an updated exam of the patient. There are NO changes in the patient's condition. Risks, benefits, and alternatives have been discussed and questions answered. Patient agrees to proceed with procedure.
--- NOTE | 2024-07-07 12:35 | P.PNAN_ITS ---
Anes - Initial Pre Proc Eval Procedure: Operation Date: 07/07/24 13:00 Proposed Procedures p Diagnostic Laparoscopy for Ectopic , Possible Right Salpingectomy or Right Oophorectomy - Dioni Menendez MD Date/Time: 07/07/24 12:35 Surgeon: Dioni Menendez MD Pre Op Diagnosis: of my period, Patient Data Age: 33 Gender: F Height: 1.63 m Weight: 59.9 kg Last Vital Signs Temp 36.6 C 07/07/24 07:49 Pulse 77 07/07/24 10:31 Resp 17 07/07/24 10:31 BP 122/83 07/07/24 10:31 Pulse Ox 99 07/07/24 10:31 O2 Del Method Room Air 07/07/24 07:49 Allergies Allergy/AdvReac Type Severity Reaction Status Date / Time No Known Allergies Allergy Unverified 09/07/21 01:09 Home Medications ?Medication ?Instructions ?Recorded ?Confirmed ?Type dicyclomine 20 mg tablet 20 mg PO TID PRN Abdominal 09/07/21 Rx cramping #10 tabs famotidine 20 mg tablet (Pepcid) 20 mg PO DAILY #14 tabs 09/07/21 Rx ondansetron 4 mg disintegrating 4 mg PO Q6H PRN nausea and 09/07/21 Rx tablet vomiting #10 tabs polyethylene glycol 3350 17 17 g PO DAILY #119 grams 09/07/21 Rx gram/dose oral powder (Miralax) Laboratory Tests 07/07/24 07/07/24 07/07/24 08:25 09:33 09:38 WBC 6.4 K/mm3 (4.5-10.0) RBC 4.34 M/mm3 (4.2-5.4) Hgb 12.3 g/dL (12.0-15.0) Hct 37.7 % (37.0-47.0) MCV 86.9 fl (80-100) MCH 28.3 pg (26-34) MCHC 32.6 g/dl (32-36) RDW 13.1 % (11.5-14.5) Plt Count 310 k/mm3 (150-375) MPV 9.7 fl (7.4-10.4) Immature Gran % (Auto) 0.3 % (0-0.5) Neut % (Auto) 70.8 % (45.5-73.1) Lymph % (Auto) 18.6 % (18.3-44.2) [place] % (Auto) 6.4 % (2.6-8.5) Eos % (Auto) 3.0 % (0-4.4) Baso % (Auto) 0.9 % (0.2-1.2) Lymph # (Auto) 1.19 K/mm3 (0.9-3.2) [place] # (Auto) 0.4 K/mm3 (0.1-0.6) Eos # (Auto) 0.2 K/mm3 (0-0.3) Baso # (Auto) 0.1 K/mm3 (0.0-0.1) Abs Immat Gran (auto) 0.02 K/mm3 (0.00-0.031) Absolute Neuts (auto) 4.5 K/mm3 (1.3-6.7) Absolute Nucleated RBC 0.000 K/mm3 (0.0-0.012) Nucleated RBC % 0.0 % (0.0-0.2) PT 14.0 Seconds (11.1-14.7) INR 1.0 APTT 23.1 Seconds (22.3-36.8) Sodium 136 L mmol/L (137-145) Potassium 4.0 mmol/L (3.4-5.0) Chloride 103 mmol/L (98-107) Carbon Dioxide 22 mmol/L (22-30) Anion Gap 11 mmol/L (4-12) BUN 14 mg/dL (7-17) Creatinine 0.73 mg/dL (0.7-1.0) Estim Creat Clear Calc 80 ml/min Estimated GFR > 60 (59 - ) Glucose 155 H mg/dL (65-110) Calcium 9.0 mg/dL (8.4-10.2) Total Bilirubin 0.5 mg/dL (0.2-1.3) AST 24 U/L (14-36) ALT 17 U/L (6-35) Alkaline Phosphatase 57 U/L (38-126) Total Protein 7.0 g/dL (6.3-8.2) Albumin 4.4 g/dL (3.5-5.1) Beta HCG, Quant Urine Color Yellow (Yellow) Urine Appearance Clear (Clear) Urine pH 6.5 (5.0-9.0) Ur Specific [place] 1.022 (1.001-1.035) Urine Protein Negative mg/dL (Negative) Urine Glucose (UA) Negative mg/dL (Negative) Urine Ketones 2+ H mg/dL (Negative) Ur Blood (Man) 1+ H (Negative) Urine Nitrate Negative (Negative) Urine Bilirubin Negative (Negative) Urine Urobilinogen 0.2 mg/dL (<2.0) Leukocyte Esterase Rfl Negative HELENA/UL (Negative) Urine RBC 0-2 /hpf (0-2) Urine WBC 0-5 /hpf (0-3) Ur Squamous Epith Cells Occasional /hpf (Few) Urine Bacteria None seen /hpf Urine Casts 0-2 POC Urine HCG, Qual Positive (Negative) Blood Type Antibody Screen Screen Baby's Blood Type Baby's ESTHELA Doses of RhIg Required 07/07/24 10:42 WBC RBC Hgb Hct MCV MCH MCHC RDW Plt Count MPV Immature Gran % (Auto) Neut % (Auto) Lymph % (Auto) [place] % (Auto) Eos % (Auto) Baso % (Auto) Lymph # (Auto) [place] # (Auto) Eos # (Auto) Baso # (Auto) Abs Immat Gran (auto) Absolute Neuts (auto) Absolute Nucleated RBC Nucleated RBC % PT INR APTT Sodium Potassium Chloride Carbon Dioxide Anion Gap BUN Creatinine Estim Creat Clear Calc Estimated GFR Glucose Calcium Total Bilirubin AST ALT Alkaline Phosphatase Total Protein Albumin Beta HCG, Quant 698.53 mIU/ML Urine Color Urine Appearance Urine pH Ur Specific [place] Urine Protein Urine Glucose (UA) Urine Ketones Ur Blood (Man) Urine Nitrate Urine Bilirubin Urine Urobilinogen Leukocyte Esterase Rfl Urine RBC Urine WBC Ur Squamous Epith Cells Urine Bacteria Urine Casts POC Urine HCG, Qual Blood Type A Negative Antibody Screen Negative Screen Not Reportable Baby's Blood Type Not Reportable Baby's ESTHELA Not Reportable Doses of RhIg Required 1 Patient hx anesthesia problems: none Family hx anesthesia problems: none Results Review: All pre-operative results and documents have been reviewed as part of the pre-operative evaluation. [facility] Past Medical History Medical History PCOS (polycystic ovarian syndrome) Patient denies significant medical history Surgical History Surgical History (Updated 07/07/24 @ 12:36 by Lloyd Reyes MD) H/O wisdom tooth extraction H/O myringotomy Social History Social History Smoking status: Never smoker Anes - Eval Final PreProcedure Day of Procedure 07/07/24 12:35 Patient weight: normal Heart: regular rate and rhythm Lungs: clear to auscultation Airway: Mallampati scale class II Neurological: alert and oriented Last oral intake: >/= 8 hours ASA classification: II Emergent: no Anesthetic plan: proceed Anesthesia type and monitoring: general ETT and standard monitoring Results Review: All pre-operative results and documents have been reviewed as part of the pre- operative evaluation. Informed Consent: The patient's anesthetic plan and its attendant risks and benefits were discussed with the patient/family/POA. Questions were solicited and answers provided to the satisfaction of the patient/family/POA.
[2024-07-07] MEDS: LACTATED RINGERS 1,000 ML 30 ML IV CONT ×2 (12:45→13:30)
[2024-07-07] MEDS: BUPIVACAINE/EPINEPHRINE 0.5% 50 ML VIAL 20 ML INFILTRATE (13:17)
--- NOTE | 2024-07-07 13:22 | W.PM.PROC2 ---
Procedure Note - Detailed Date of Procedure 07/07/24 Pre-op Diagnosis right tubal ectopic hemoparitoneum Post-op Diagnosis Same Procedure Performed laparoscopic right slapingectomy Surgeon Dioni Menendez MD Anesthesia General Indications right tubal ectopic hemoperitoneum Findings hemoperitoneum dilated right fallopian tube, ectopic left paratubal cyst Description of Procedure OPERATIVE FINDINGS: 1. 100 mL of hemoperitoneum with a dilated Right fallopian tube with blood clot extruding from the fimbriated end. Normal appearing uterus and ovaries bilaterally, simple paratubal cyst on the left fallopian tube. PROCEDURE: After the patient was appropriately consented she was taken to the operating room where she was transferred to the table in a dorsal supine position. General anesthesia was then induced with endotracheal intubation. The patient was transferred to a dorsal lithotomy position using adjustable Yariel stirrups. The patient was prepped and draped. A transurethral arreguin catheter was placed. A speculum was placed and the anterior lip of the cervix was grasped with a tenaculum. An acorn uterine manipulator was placed. Attention was then turned to the abdomen. Lidocaine was injected subumbilically and a 1cm incision made here. The abdomen was entered using a 5 mm optical trocar under direct visualization. The abdomen was then insufflated with approximately 2-3L of CO2 establishing a pneumoperitoneum. The patient was placed in Trendelenburg position. The above findings were noted. We subsequently placed two laparoscopic 5mm trocars 10cm lateral to the umbilicus at a 30 degree caudal angle towards the ipsilateral ASIS. We evaluated the pelvis with the above findings. The Right fallopian tube was then grasped and divided from the ipsilateral ovary and uterus via the Ligasure device. Hemostasis was identified. The RLQ port was replaced with a 10 mm port and the Right tube removed via an Endocatch bag. Following this dissection one further wash of the pelvis was performed with suction calender machine operator helper. A left paratubal cyst was noted. Cystotomy was performed and clear fluid was irrigated and suctioned from the pelvis. Hemostasis was reidentified and we proceeded with closure. The RLQ fascia was closed with an 0-Vicryl using a Seth-Margarita device. All port-site skin incisions were reapproximated with 4-0 Vicryl in a subcuticular fashion. Surgical glue was placed. The patient tolerated the procedure well. The patient had SCD's on for VTE prophylaxis throughout the entire procedure. There were no antibiotics given for antimicrobial prophylaxis. Sponge, needle and instrument counts were correct x 2 and the patient was taken to recovery in stable condition. Estimated Blood Loss 25 Urine Output 25 Drains No Packing No Pathology Yes (Right fallopian tube and products of conception ) Complications No immediate complications Condition Stable Disposition PACU [facility] Billing Surgery - Charge Forward: Surgery Billing
[2024-07-07] MEDS: oxyCODONE HCL (*CRX) 5 MG TAB IR PO (14:25)
== END 2024-07-07 15:10 | disposition home or self-care (01) ==
LOC: ANHED 09:23 → ANHSURGERY 11:51
PROVIDERS: Student in an Organized Health Care Education/Training Program; Emergency Provider Physician Assistant; Visit Provider Student in an Organized Health Care Education/Training Program
PROC: (CPT 49320; principal; 2024-07-07 13:00)
DX: O00.101 Right tubal pregnancy without intrauterine pregnancy (principal); N83.8 Other noninflammatory disorders of ovary, fallopian tube and broad ligament; K66.1 Hemoperitoneum; G89.18 Other acute postprocedural pain; E28.2 Polycystic ovarian syndrome; Z98.890 Other specified postprocedural states
CPT/HCPCS: 59151; 36415; 76801; 76817; 80053; 81001; 81025; 84702; 85025; 85461; 85610; 85730; 86850; 86900; 86901; 88302; 90384; 96372; 96374; 96375; 96376; 99285; A9270; J1100; J1200; J2003; J2004; J2250; J2270; J2405; J2704; J2790; J3010; J7030; J7120